=== PATIENT | female | born 1990 | race African-American/Black ===

== ENCOUNTER 2023-07-20 20:52 | Emergency (ER) | payer BC ==
--- OUTSIDE RECORDS SUMMARY | 2023-07-20 20:55 | XMS REPORT | Continuity of Care Document ---
:1990 Author Organization [facility] t Address [address] [place] [address] Care Team Providers Name Role Phone Keli Holcomb Attending Clinician Unavailable Keli Holcomb Admitting Clinician Unavailable Payers Payer Name Policy Type Policy Number Effective Date Expiration Date S ource Problems This patient has no known problems. Allergies, Adverse Reactions, Alerts Allergy Allergy Status Severity Reaction(s) Onset Inactive Treating Comm ents Source Name Type Date Date Clinician No Known DA Active U [facility] Allergie 06-06 [facility] l [facility] Medications This patient has no known medications. Procedures Procedure Date / Time Performed Performing Clinician Maude stephens [id number] 2023-06-08 00:00:00 [email or web address] [facility] [id number] 2023-06-08 00:00:00 [email or web address] [facility] [id number] 2023-06-08 00:00:00 [email or web address] [facility] [id number] 2023-06-08 00:00:00 [email or web address] [facility] Encounters Start End Encounter Admission Attending Care Care Encounter Source Date/Time Date/Time Type Type Clinicians Facility Department ID 2023-06-06 2023-06-09 Inpatient ANATOLIY Rosenthal [facility] [id number] [address] [facility] 23:53:00 12:52:00 Keli [facility] Results Test Description Test Time Test Comments Results Result Comments Source SURGICAL 2023-06-22 17:47:00 Test Item Value Reference Range Interpretation Yue cabrera SURGICAL RUN DATE: (test 06/22/23 [facility] PAGE 1 RUN TIME: 1746 Specimen Inquiry RUN USER: INTERFACE code = PATIENT: SR) YANG CHAVEZ LOC: PavelDILMA U #: [id number] AGE/SX: 32/F ROOM: [facility] RE06/06/23REG DR: Keli Holcomb MD : 86 BED: A DIS: 06/09/23 STATUS: DIS IN TLOC: SPEC #: [id number] RECD: [id number] STATUS: BRADEN SKAGGS #: [id number] SHANON: 06/08/[address]: Keli Holcomb MD ENTERED: 06/09/23 SP TYPE: SURGICAL OTHR DR: DOES_NOT KNOW ORDERED: ANATOMIC SPEC, SPEC TRACK, [id number] COPI ES TO: DOES_NOT KNOW Keli Holcomb MD [address] [address] [email or web address] PROCEDURES: [id number] (06/09/23) TISSUES: A. PLACENTA, THIRD TRIMESTER (28 + WEEKS) FINAL DIAGNOSIS A. PLACENTA, DELIVERY: - Villous development compatible with third trimester with fo regina infarct (less than 5% ofdisc) - Chorioamniotic membranes with no significant abnormalities - Trivascular umbilical cord with no significant abnormalities Comment:The weight 449 g is between the 25th and 50th percentiles for the stated gestational age of39 weeks. GROSS DESCRIPTION Fixative: Formal inLabeled: PlacentaSpecimen received: Claros placenta with attached membranes and umbilical cord Trimmed weight: 449 gDimensions: 18.7 x 17.2 x 2.9 cmFetal membranes: [place]-doe, translucentSite o f membrane rupture: 6.1 cm from the placental marginFetal surface: Intact, blue-doe with a normal arbo rizing vasculature pattern,predominantly detached amnion, as well as scattered focal fibrin depos itionUmbilical cord: 3 vessels, 51.8 cm in length and ranges in diameter from 1.1 to 1.9 cmUmbilical cord insertion: Slightly eccentric; 6.1 cm from closest placental marginUmbilical cord appeara nce: Pale jeronimo to yellow-jeronimo with 2-3 twists per 10 cm, as well as asingle false knot CONTINUED ON NEXT PAGE RUN DATE: 06/22/23 [facility] PAGE 2 RUN TIME: 1747 Specimen Inquiry RUN USER: INTERFACE SPEC #: [id number] PATIENT: YANG CHAVEZ #[id number] (Continued) GROSS DESCRIPTION (Continued ) Maternal surface: Intact and complete with scattered lacy calcifications, as well as aslight amount of adherent blood coagulumCut surface: Red-brown, and is accomplished against gritty resistanceAbnormaliti es: A single pale jeronimo lesion measuring 0.8 cm, which encompasses less than 5%of the total placental vol ume [employer] sections submitted as follows:A1 umbilical cord and membrane rollA2 full-thickne ss placental cross-sectionA3 additional personal banking representative section of maternal surface.(CAA; 06/09/2023) Tina hnical component performed at [facility] [place] [address] Immunohistochemical stains and Special Stains [facility], [address] [place] [address], [address], [place] [address] Unless gross only, the diagnosis is based upon microscopic examination. Imm unohistochemistry: This test was developed and its performance characteristicsdetermined by this laboratory. It has not been approved nor does it need approval by [place] FDA. Appropriate posit kacey and negative controls are reviewed and judged to beacceptable. This laboratory is certified unde r the Clinical Laboratory ImprovementAmendments (CLIA-88) as qualified to perform high complexity clin ica laboratory testing. CLINICAL INFORMATION 06/08/23, IUP 39 WEEKS. Signed Blanca Cornell MD 1 1746 END OF REPORT [id number] 17:13:00 Test Item Value Reference Range Interpretation Comments GLUBED (test code = GLUBED) 112 mg/dL 65-110 H [id number] 07:57:00 Test Item Value Reference Range Interpretation Comments GLUBED (test code = GLUBED) 79 mg/dL 65-110 N [id number] 05:29:00 Test Item Value Reference Range Interpretation Comments GLUCOSE (test code = GLU) 80 mg/dL 65-110 N AB HIV 1 02:59:00 Test Item Value Reference Range Interpretation Comments AB HIV 1 2 (test NONREACTIVE NONREACTIVE Done by [facility] code = LGK84CG) 4th Gen HIV Ag/Ab Combo Screen AG HEPATITIS B [id number] 02:59:00 Test Item Value Reference Range Interpretation Comments AG HEPATITIS B SURFACE (test code NONREACTIVE NONREACTIVE = HBSAG) AB HEPATITIS C [id number] 02:59:00 Test Item Value Reference Range Interpretation Comments AB HEPATITIS C (test code = NONREACTIVE NONREACTIVE HCVAB) SIGNAL TO CUTOFF (test code = 0.12 <0.80 N CUTOFF) AB [id number] 02:59:00 Test Item Value Reference Range Interpretation Comments AB TREPONEMA (test code = TREPAB) NONREACTIVE NONREACTIVE CBC W/AUTO [id number] 02:03:00 Test Item Value Reference Range Interpretation Comments WHITE BLOOD CELL (test code = WBC) 8.5 K/mm3 6.5-12.3 N RED BLOOD CELL (test code = RBC) 4.23 M/mm3 3.51-4.69 N HEMOGLOBIN (test code = HGB) 12.4 g/dL 10.1-13.8 N HEMATOCRIT (test code = HCT) 37.2 % 32.5-41.8 N MEAN CELL VOLUME (test code = MCV) 87.9 fL 84.6-96.6 N MEAN CELL HGB (test code = MCH) 29.3 pg 27.3-33.9 N MEAN CELL HGB CONCETRATION (test 33.3 gm/dL 32.0-34.2 N code = MCHC) RED CELL DISTRIBUTION WIDTH (test 13.0 % 12.2-16.3 N code = RDW) PLATELET COUNT (test code = PLT) 230 K/mm3 134-363 N MEAN PLATELET VOLUME (test code = 10.5 fL 9.2-12.7 N MPV) NEUTROPHIL % (test code = NT%) 53.3 % 57.9-77.3 L LYMPHOCYTE % (test code = LY%) 36.1 % 14.5-29.7 H MONOCYTE % (test code = MO%) 8.6 % 3.6-10.2 N EOSINOPHIL % (test code = EO%) 1.2 % 0.0-3.0 N BASOPHIL % (test code = BA%) 0.4 % 0.1-0.9 N NEUTROPHIL # (test code = NT#) 4.5 K/mm3 LYMPHOCYTE # (test code = LY#) 3.1 K/mm3 MONOCYTE # (test code = MO#) 0.7 K/mm3 EOSINOPHIL # (test code = EO#) 0.10 K/mm3 BASOPHIL # (test code = BA#) 0.0 K/mm3 RBC MORPHOLOGY REQUIRED (test code NORMAL NORMAL = RBCM) PLATELET MORPHOLOGY REQUIRED (test NORMAL NORMAL code = PLTMR)
[2023-07-20 22:38] LABS: Absolute Lymphocytes (CBC) 3.7 K/uL (0.7-4.9); Hematocrit 40.8 % (36.0-45.0); Lymphocytes % 49.3 % (15.3-44.8); MCV 88.5 fL (80-100); MPV 8.7 fL (7.6-11.3); Platelets 213 thou/uL (152-406); RBC Red Blood Cell Count 4.61 M/uL (3.86-4.86)
[2023-07-20 22:42] LABS: Albumin 3.5 g/dL (3.4-5.0); Bilirubin Direct 0.1 mg/dL (0-0.2); Bilirubin Indirect, Calculated 0.4 mg/dL (0.2-0.8); Bilirubin Total 0.5 mg/dL (0.2-1.0); Magnesium 2.1 mg/dL (1.6-2.4); Potassium 3.7 mEq/L (3.5-5.1); Protein, Total 7.6 g/dL (6.4-8.2); Troponin High Sensitivity 5.2 pg/mL (<58.9)
[2023-07-20] MEDS ORDERED: HYDRALAZINE HCL 20 MG/ML VIAL ONE (23:11)
[2023-07-21 00:56] LABS: Specific Gravity 1.018 (1.005-1.030)
[2023-07-21 00:59] LABS: Specific Gravity 1.018 (1.005-1.030); Urine Bacteria None Seen /HPF (<20); Urine Bilirubin NEGATIVE (Negative); Urine Blood Trace (Negative); Urine Clarity Turbid (Clear); Urine Color Light-Yellow (Yellow); Urine Glucose NEGATIVE (Negative); Urine Protein NEGATIVE (Negative); Urine RBC <5 /HPF (None Seen); Urine Urobilinogen Normal (Normal); Urine pH 6.5 (5.0-7.0)
--- NOTE | 2023-07-21 03:22 | EDPHYS ---
Physician Documentation [facility] Name: Nikunj Womack Age: 33 yrs Sex: Female : 1990 Arrival Date: 07/20/2023 Time: 20:52 Bed 8 Private MD: ED Physician Britton Bradley HPI: 07/20 22:00 This 33 yrs old Black Female presents to ER via Ambulatory with complaints of High cp Blood Pressure. 22:00 The patient has elevated blood pressure and discovered this at home, with a home device.cp 22:00 Patient is a 33-year-old female with no significant past medical history who presents cp to the emergency department with concern for elevated blood pressure. Patient reports she is 6 weeks delivery of a healthy infant and at her appointment today was observed to have elevated blood pressure. Patient reports while at home today she started having some blurred vision which she describes as seeing through a kaleidoscope, dizziness and so she checked her blood pressure and measured a systolic pressure of 194. Patient denies any weakness but does report some paresthesias in her left leg. BULB WEEDER: 21:31 LMP N/A - Recent , Not vc1 Historical: - Allergies: 21:29 No Known Allergies; vc1 - Home Meds: 21:29 None [Active]; vc1 - PMHx: 21:29 None; vc1 - PSHx: 21:29 None; vc1 - Immunization history:: Client reports having NOT received the Covid vaccine. - Social history:: Smoking status: Patient denies any tobacco usage or history of. ROS: 22:05 Constitutional: Negative for body aches, chills, fever, poor PO intake, cp 22:05 Eyes: Positive for blurry vision, cp 22:05 ENT: Negative for drainage from ear(s), ear pain, sore throat, difficulty swallowing, difficulty handling secretions, 22:05 Cardiovascular: Negative for chest pain, edema, palpitations, 22:05 Respiratory: Negative for cough, shortness of breath, wheezing, 22:05 Abdomen/GI: Negative for abdominal pain, nausea, vomiting, and diarrhea, 22:05 : Negative for urinary symptoms, 22:05 Neuro: Positive for headache, Negative for altered mental status, syncope, weakness, 22:05 All other systems are negative, Exam: 22:10 Constitutional: The patient appears in no acute distress, alert, awake, cp non-diaphoretic, non-toxic, well developed, well nourished, overweight 22:10 Head/Face: Normocephalic, atraumatic. cp 22:10 Eyes: Periorbital structures: appear normal, Pupils: equal, round, and reactive to light and accomodation, Extraocular movements: intact throughout, Conjunctiva: normal, no exudate, no injection, Sclera: no appreciated abnormality, Lids and lashes: appear normal, bilaterally, 22:10 ENT: External ear(s): are unremarkable, Ear canal(s): are normal, clear, TM's: dullness, bilaterally, Nose: is normal, Mouth: Lips: moist, Oral mucosa: pink and intact, moist, Posterior pharynx: Airway: no evidence of obstruction, patent, swelling, is not appreciated, erythema, is not appreciated, 22:10 Neck: ROM/movement: is normal, is supple, without pain, no range of motions limitations, no meningismus, no nuchal rigidity, 22:10 Chest/axilla: Inspection: normal, 22:10 Cardiovascular: Rate: normal, Rhythm: regular, Edema: is not appreciated, JVD: is not appreciated, 22:10 Respiratory: the patient does not display signs of respiratory distress, Respirations: normal, no use of accessory muscles, no retractions, labored breathing, is not present, Breath sounds: are clear throughout, no decreased breath sounds, no stridor, no wheezing, 22:10 Abdomen/GI: Inspection: abdomen appears normal, Palpation: abdomen is soft and non-tender, in all quadrants, 22:10 Back: pain, is absent, ROM is normal, 22:10 Neuro: Orientation: to person, place \T\ time. Mentation: is normal, Cerebellar function: Romberg testing is negative, Motor: moves all fours, strength is normal, Sensation: no obvious gross deficits, Gait: is steady, at a normal pace, without difficulty, 22:17 ECG was reviewed by the Attending Physician. cp Vital Signs: 21:27 BP 175 / 108; Pulse 97; Resp 18; Pulse Ox 97% ; Weight 98.43 kg; Height 5 ft. 0 in. ; vc1 Pain 3/10; 23:04 BP 183 / 92; Pulse 56; Resp 17 S; Pulse Ox 98% on R/A; lg3 07/21 00:26 BP 143 / 86; Pulse 57; Resp 16 S; Pulse Ox 98% on R/A; lg3 07/20 21:27 Body Mass Index 42.38 (98.43 kg, 152.4 cm) vc1 07/20 21:27 Pain Scale: Adult vc1 MDM: 07/20 21:32 Patient medically screened. cp 07/21 01:37 Data reviewed: vital signs, nurses notes, lab test result(s), EKG, radiologic studies, cp CT scan, plain films. 01:37 Differential diagnosis: hypertensive crisis, Malignant HTN, CVA, intracerebral cp hemorrhage. Consideration of Admission/Observation Escalation of care including admission/observation considered. I considered the following discharge prescriptions or medication management in the emergency department Medications were administered in the Emergency Department. See MAR. Counseling: I had a detailed discussion with the patient and/or guardian regarding the historical points, exam findings, and any diagnostic results supporting the discharge/admit diagnosis, the presence of at least one elevated blood pressure reading (>120/80) during this emergency department visit, lab results, radiology results, the need for outpatient follow up, for definitive care, a family practitioner, to return to the emergency department if symptoms worsen or persist or if there are any questions or concerns that arise at home. Response to treatment: the patient's symptoms have markedly improved after treatment, and as a result, I will discharge patient. ED course: Discussed results of today's testing. Blood pressure improved with administration of hydralazine. Patient wants to continue breast feeding, so will discharge with RX for Amlodipine and instructions to f/u with primary physician. 07/20 22:18 Order name: Basic Metabolic Panel; Complete Time: 22:53 EDMS 07/20 22:53 Interpretation: Normal except: CL 111; CA 8.4. cp 07/20 22:18 Order name: Liver (Hepatic) Function; Complete Time: 22:53 EDMS 07/20 23:08 Interpretation: Normal except: AST 14; GLOB 4.1; A/G 0.9. cp 07/20 22:18 Order name: Troponin High Sensitivity; Complete Time: 22:53 EDMS 07/20 22:18 Order name: NT PRO-BNP; Complete Time: 22:53 EDMS 07/20 22:18 Order name: Magnesium; Complete Time: 22:53 EDMS 07/20 22:18 Order name: CBC with Automated Diff; Complete Time: 22:53 EDPR 07/20 23:08 Interpretation: Normal except: CELESTE% 41.3; LYM% 49.3. cp 07/20 23:11 Order name: Urinalysis W/Microscopic cp 07/20 23:11 Order name: PREGU cp 07/20 22:04 Order name: US Extremity Venous W Compression Cong cp 07/20 22:06 Order name: Chest Single View EDPR 07/20 22:38 Order name: Head Brain Wo Cont EDPR 07/20 22:39 Order name: Extrem Venous W Compress Cong EDPR 07/20 21:56 Order name: EKG; Complete Time: 23:01 07/20 21:56 Order name: Cardiac monitoring; Complete Time: 22:13 07/20 21:56 Order name: EKG - Nurse/Tech; Complete Time: 22:13 07/20 21:56 Order name: IV Saline Lock; Complete Time: 22:13 07/20 21:56 Order name: Labs collected and sent; Complete Time: 22:13 07/20 21:56 Order name: O2 Per Protocol; Complete Time: 22:13 07/20 21:56 Order name: O2 Sat Monitoring; Complete Time: 22:13 07/21 00:22 Order name: Vital Signs: please update to include blood pressure; Complete Time: 01:01 EC/13 22:17 Rate is 50 beats/min. Rhythm is regular. TN interval is normal. QRS interval is normal. cp QT interval is normal. T waves are Inverted in leads III, aVR. Interpreted by me. Reviewed by me. Administered Medications: 23:04 Drug: hydrALAZINE IVP 10 mg IVP once Route: IVP; Site: right antecubital; lg3 07/21 01:01 Follow up: Response: No adverse reaction; Marked relief of symptoms; Blood pressure is lg3 lowered Disposition Summary: 07/21/23 01:38 Discharge Ordered Notes: Location: Home cp Problem: new cp Symptoms: have improved cp Condition: Stable cp Diagnosis - Hypertensive heart disease without heart failure cp Followup: cp - With: Private Physician - When: 2 - 3 days - Reason: Recheck today's complaints Discharge Instructions: - Discharge Summary Sheet cp - Hypertension, Adult cp - Aspirin and Your Heart cp - Form - Blood Pressure Record Sheet cp - How to Take Your Blood Pressure cp Forms: - Medication Reconciliation Form cp - Thank You Letter cp - Antibiotic Education cp - Prescription Opioid Use cp - Patient Portal Instructions cp - Leadership Thank You Letter cp Prescriptions: - amlodipine 5 mg Oral tablet - take 1 tablet ORAL route daily; 30 tablet; Refills: 0, Product Selection cp Permitted Signatures: Dispatcher [employer] EDPR Tiburcio Amor PA PA cp Erlnida Larsen, RN RN lg3 Tammy Luque RN RN vc1 Corrections: (The following items were deleted from the chart) 07/20 23:03 23:01 Chest Single View+RAD.RAD.BRZ ordered. EDMS EDMS 23:04 23:01 BASIC METABOLIC PANEL+C.LAB.BRZ ordered. EDMS EDMS 23:04 23:01 HEPATIC FUNCTION+C.LAB.BRZ ordered. EDMS EDMS 23:04 23:01 MAGNESIUM+C.LAB.BRZ ordered. EDMS EDMS 23:04 23:01 PROBNP+C.LAB.BRZ ordered. EDMS EDMS 23:04 23:01 Troponin High Sensitivity+C.LAB.BRZ ordered. EDMS EDMS 23:06 23:01 CBC+H.LAB.BRZ ordered. EDMS EDMS 23:11 23:01 Head Brain Wo Cont+CT.RAD.BRZ ordered. EDMS EDMS 07/22 00:56 00:54 Patient is a 33-year-old female with no significant past medical history who cp presents to the emergency department with concern for elevated blood pressure. Patient reports she is 6 weeks delivery of a healthy infant and at her. cp 00:57 00:54 Patient is a 33-year-old female with no significant past medical history who cp presents to the emergency department with concern for elevated blood pressure. Patient reports she is 6 weeks delivery of a healthy infant and at her appointment today was observed to have elevated blood pressure. Patient reports while at home today she started having some blurred vision which she describes as seeing through a kaleidoscope, dizziness and so she checked her blood pressure and measured it to be. cp
--- NOTE | 2023-07-21 03:22 | ER ---
Nurse's Notes [facility] Name: Nikunj Womack Age: 33 yrs Sex: Female : 1990 Arrival Date: 07/20/2023 Time: 20:52 Bed 8 Private MD: Diagnosis: Hypertensive heart disease without heart failure Presentation: 07/20 21:27 Chief complaint: Patient states: My blood pressure was a little high at my post partem vc1 appointment today and this evening I got a headache and my vision got really blurry so I checked my bp and it was 194/119. I don't have a history of high blood pressure. Coronavirus screen: Vaccine status: Patient reports being unvaccinated. At this time, the client does not indicate any symptoms associated with coronavirus-19. Ebola Screen: Patient negative for fever greater than or equal to 101.5 degrees Fahrenheit, and additional compatible Ebola Virus Disease symptoms Patient denies exposure to infectious person. Patient denies travel to an Ebola-affected area in the 21 days before illness onset. No symptoms or risks identified at this time. Initial Sepsis Screen: Does the patient meet any 2 criteria? No. Patient's initial sepsis screen is negative. Does the patient have a suspected source of infection? No. Patient's initial sepsis screen is negative. Risk Assessment: Do you want to hurt yourself or someone else? Patient reports no desire to harm self or others. Onset of symptoms was July 20, 2023. 21:27 Method Of Arrival: Ambulatory vc1 21:27 Acuity: KORI 3 vc1 Triage Assessment: 21:30 General: Appears in no apparent distress. comfortable, Behavior is calm, cooperative, vc1 appropriate for age. Pain: Complains of pain in headache Pain currently is 3 out of 10 on a pain scale. EENT: No deficits noted. No signs and/or symptoms were reported regarding the EENT system. Reports blurry vision that has now resolved. Neuro: Level of Consciousness is awake, alert, obeys commands, Oriented to person, place, time, situation, Appropriate for age. Cardiovascular: No deficits noted. Respiratory: Airway is patent Respiratory effort is even, unlabored, Respiratory pattern is regular, symmetrical. GI: No deficits noted. No signs and/or symptoms were reported involving the gastrointestinal system. : No deficits noted. No signs and/or symptoms were reported regarding the genitourinary system. Derm: No deficits noted. No signs and/or symptoms reported regarding the dermatologic system. Musculoskeletal: No deficits noted. No signs and/or symptoms reported regarding the musculoskeletal system. MEDICARE CONTACT SPECIALIST: 21:31 LMP N/A - Recent , Not vc1 Historical: - Allergies: 21:29 No Known Allergies; vc1 - Home Meds: 21:29 None [Active]; vc1 - PMHx: 21:29 None; vc1 - PSHx: 21:29 None; vc1 - Immunization history:: Client reports having NOT received the Covid vaccine. - Social history:: Smoking status: Patient denies any tobacco usage or history of. Screenin:14 [facility] ED Fall Risk Assessment (Adult) History of falling in the last 3 months, lg3 including since admission No falls in past 3 months (0 pts). Abuse screen: Denies threats or abuse. Denies injuries from another. Nutritional screening: No deficits noted. Tuberculosis screening: No symptoms or risk factors identified. Assessment: 22:14 General: Appears in no apparent distress. comfortable, Behavior is calm, cooperative. lg3 Pain: Complains of pain in head. Neuro: No deficits noted. Rocha Agitation-Sedation Scale (RASS): 0 - Alert and Calm Level of Consciousness is awake, alert, obeys commands, Oriented to person, place, time, situation, Reports blurred vision headache. Cardiovascular: No deficits noted. Denies chest pain, shortness of breath, Capillary refill < 3 seconds Clubbing of nail beds is absent JVD is absent Patient's skin is warm and dry. Respiratory: No deficits noted. Airway is patent Respiratory effort is even, unlabored, Respiratory pattern is regular, symmetrical. GI: No deficits noted. No signs and/or symptoms were reported involving the gastrointestinal system. Abdomen is round non-distended, obese. : No deficits noted. No signs and/or symptoms were reported regarding the genitourinary system. EENT: No deficits noted. No signs and/or symptoms were reported regarding the EENT system. Derm: No deficits noted. No signs and/or symptoms reported regarding the dermatologic system. Skin is intact, is healthy with good turgor, Skin is dry, Skin is normal, Skin temperature is warm. Musculoskeletal: No deficits noted. No signs and/or symptoms reported regarding the musculoskeletal system. Capillary refill Range of motion: intact in all extremities. 23:04 Reassessment: Patient appears in no apparent distress at this time. No changes from lg3 previously documented assessment. Patient and/or family updated on plan of care and expected duration. Pain level reassessed. Patient is alert, oriented x 3, equal unlabored respirations, skin warm/dry/pink. 07/21 00:29 Reassessment: Patient appears in no apparent distress at this time. No changes from lg3 previously documented assessment. Patient and/or family updated on plan of care and expected duration. Pain level reassessed. Patient is alert, oriented x 3, equal unlabored respirations, skin warm/dry/pink. Patient states feeling better. Patient states symptoms have improved. 01:54 Reassessment: Patient appears in no apparent distress at this time. Patient and/or jb4 family updated on plan of care and expected duration. Pain level reassessed. Patient is alert, oriented x 3, equal unlabored respirations, skin warm/dry/pink. Vital Signs: 07/20 21:27 BP 175 / 108; Pulse 97; Resp 18; Pulse Ox 97% ; Weight 98.43 kg; Height 5 ft. 0 in. ; vc1 Pain 11/14; 23:04 BP 183 / 92; Pulse 56; Resp 17 S; Pulse Ox 98% on R/A; lg3 07/21 00:26 BP 143 / 86; Pulse 57; Resp 16 S; Pulse Ox 98% on R/A; lg3 07/20 21:27 Body Mass Index 42.38 (98.43 kg, 152.4 cm) vc1 07/20 21:27 Pain Scale: Adult vc1 ED Course: 07/20 20:56 Patient arrived in ED. mr 21:05 Tiburcio Amor PA is PHCP. cp 21:05 Britton Bradley MD is Attending Physician. cp 21:29 Triage completed. vc1 21:30 Arm band placed on right wrist. vc1 22:14 Patient has correct armband on for positive identification. Placed in gown. Bed in low lg3 position. Call light in reach. Side rails up X 1. Client placed on continuous cardiac and pulse oximetry monitoring. NIBP monitoring applied. night monitor on. Door closed. Noise minimized. Warm blanket given. Family accompanied patient. 22:14 Inserted saline lock: 22 gauge in right antecubital area, using aseptic technique. lg3 Blood collected. Patient maintains SpO2 saturation greater than 95% on room air. 22:43 Head Brain Wo Cont In Process Unspecified. EDMS 22:50 Chest Single View In Process Unspecified. EDMS 23:02 Extrem Venous W Compress Cong In Process Unspecified. EDMS 23:04 Erlinda Larsen, RN is Primary Nurse. lg3 07/21 01:54 No provider procedures requiring assistance completed. IV discontinued, bleeding jb4 controlled, No redness/swelling at site. Pressure dressing applied. Administered Medications: 07/20 23:04 Drug: hydrALAZINE IVP 10 mg IVP once Route: IVP; Site: right antecubital; lg3 07/21 01:01 Follow up: Response: No adverse reaction; Marked relief of symptoms; Blood pressure is lg3 lowered Outcome: 01:38 Discharge ordered by MD. daryn 01:54 Discharged to home ambulatory, jb4 01:54 Condition: stable 01:54 Discharge instructions given to patient, Instructed on discharge instructions, follow up and referral plans. medication usage, Demonstrated understanding of instructions, follow-up care, medications, Prescriptions given X 1, 01:56 Patient left the ED. jb4 Signatures: Dispatcher [employer] EDMS Crista Joseph, Reg Reg mr Tiburcio Amor, Ag Rivera cp, JACKIE RN jb4 Erlinda Larsen, RN RN lg3 Tammy Luque RN RN vc1
[2023-07-21 04:16] VITALS: O2SAT 98
[2023-07-21 04:17] VITALS: BP 143/86
--- NOTE | 2023-07-21 14:28 | RAD REPORT ---
EXAM DESCRIPTION: CT - Head Brain Wo Cont - 07/21/2023 2:01 am CLINICAL HISTORY: Visual disturbance, hypertension COMPARISON: None. TECHNIQUE: Head/brain axial images acquired without contrast. Coronal and sagittal reformats created . Exam performed according to departmental dose-optimization program which includes automated exposur e control, adjustment of mA and/or kV according to patient size, and/or use of iterative reconstructi on technique. FINDINGS: No midline shift, mass effect, intracranial hemorrhage, or hydrocephalus. Mild, bilateral, globus pallidus calcifications. Paranasal sinuses clear. Mastoid air cells clear. No skull fracture or significant skull lesion. IMPRESSION: 1. No CT evidence of acute intracranial abnormality. 2. Mild, bilateral, globus pallidus calcifications in a relatively young patient. Causes include idiopathic, Fahr disease, mineralizing microangiopathy, prior toxicity, prior infectio n, parathyroid abnormality, and genetic abnormality. Electronically signed by: Demetris Tabares MD 07/20/2023 11:03 PM NNPS Due to temporary technical issues with the PACS/Fluency reporting system, reports are being signed by the in house radiologist without review as a courtesy to ensure prompt reporting. The interpreting r adiologist is fully responsible for the content of the report.
--- NOTE | 2023-07-21 14:32 | RAD REPORT ---
EXAM DESCRIPTION: RAD - Chest Single View - 07/20/2023 10:48 pm CLINICAL HISTORY: Hypertension COMPARISON: None. TECHNIQUE: Chest 1 View AP FINDINGS: Trachea midline. Heart size appears upper limits normal and may be partly due to portable AP technique. Lungs clear without evidence of consolidation, mass, or significant pulmonary edema. No significant pleural effusion or pneumothorax. Moderate symmetric bilateral lower lungs/chest density most likely represents overlying breast/chest wall attenuation artifact. Bones unremarkable. IMPRESSION: Unremarkable chest radiograph. Electronically signed by: Demetris Tabares MD 07/20/2023 10:56 PM [employer] [employer] [facility] Due to temporary technical issues with the PACS/Fluency reporting system, reports are being signed by the in house radiologist without review as a courtesy to ensure prompt reporting. The interpreting r adiologist is fully responsible for the content of the report.
--- NOTE | 2023-07-22 12:31 | RAD REPORT ---
EXAM DESCRIPTION: US - Extrem Venous W Compress Cong - 07/20/2023 11:00 pm CLINICAL HISTORY: 33 years Female; swelling TECHNIQUE: Spectral analysis and color/grayscale sonographic images of both legs were obtained utili zing a high-frequency linear array transducer supplemented with color Doppler, compression and augmen tation techniques. COMPARISON: None. FINDINGS: Right leg veins: Common femoral: normal Greater saphenous: normal Superficial femoral: normal Popliteal: normal Calf Veins: normal Left leg veins: Common femoral: normal Greater saphenous: normal Superficial femoral: normal Popliteal: normal Calf Veins: normal IMPRESSION: 1. No sonographic evidence for lower extremity deep venous thrombosis in either leg. Electronically signed by: An Glez MD 07/20/2023 11:12 PM [employer]ABLE ENERGY ENGINEER Due to temporary technical issues with the PACS/Fluency reporting system, reports are being signed by the in house radiologist without review as a courtesy to ensure prompt reporting. The interpreting r adiologist is fully responsible for the content of the report.
--- NOTE | 2023-07-22 17:26 | EKG ---
Test Date: 2023-07-20 Test Time: 22:11:29 Drupal Web Developer: KRISW MEASUREMENT RESULTS: Intervals: Rate: 50 OH: 196 QRSD: 88 QT: 432 QTc: 393 [place]: P: 32 OH: 196 QRS: -5 T: 3 INTERPRETIVE STATEMENTS: Sinus bradycardia with sinus arrhythmia Anterior infarct, age undetermined Abnormal ECG No previous ECG available for comparison Electronically Signed On 07-22-23 17:21:42 MORTGAGE LOAN PROCESSING CLERK by Sathya Burgess
== END 2023-07-21 01:56 | disposition home or self-care (01) ==
LOC: ER 20:52
DX: I11.9 Hypertensive heart disease without heart failure (principal)
CPT/HCPCS: 93005; 85025; 81001; 80048; 36415; 83735; 81025; 80076; 84484; 83880; 70450; 71045; 93970; 96374; 99285; J0360